=== PATIENT | male | born 1985 | race Caucasian/White ===

== ENCOUNTER 2020-06-11 20:38 | Emergency (ER) | payer MEDICAID, OTHER ==
[2020-06-11 20:53] VITALS: BP 137/86; PULSE 115
[2020-06-11] MEDS ORDERED: Diphtheria,Pertussis(Acell),Tetanus Vaccine 0.5 ML Syringe IM ONE (21:01)
[2020-06-11] MEDS ORDERED: Bupivacaine 0.5% 10 ML SDV INJECT ONE (21:01)
[2020-06-11] MEDS ORDERED: Lidocaine 1% with EPINEPHrine 1:100,000 20 ML MDV INJECT ONE (21:01)
--- NOTE | 2020-06-11 21:08 | EDM.PDOC ---
ED HPI GENERAL MEDICAL PROBLEM - General Chief Complaint: Laceration Stated Complaint: rt hand laceration punched wood door Time Seen by Provider: 06/11/20 20:48 Source of Information: Reports: Patient History Limitations: Reports: No Limitations - History of Present Illness INITIAL COMMENTS - FREE TEXT/NARRATIVE: Mr. Faulkner is a very pleasant 35-year-old gentleman who now presents to the ED after suffering a laceration to his right palm. He states that he had a few drinks tonight, then got into an argument with his father over the phone around 20:20. He then punched a wood door several times, suffering a laceration to his right palm. No home treatment, and he is otherwise uninjured. Here in the ED, the patient is initially found to be mildly tachycardic at 115 bpm, otherwise, he is hemodynamically stable, afebrile, saturating 95% on room air. Other than madiha's right hand injury, the patient reports having a left ear infection, treated with amoxicillin, about 2 weeks ago. Otherwise, the patient denies having a recent fever, chills, sore throat, ear pain, nasal or sinus congestion, cough, dyspnea, chest pain, palpitations, nausea, vomiting, constipation, diarrhea, abdominal pain, urinary symptoms, recent weight gain or weight loss, recent bloody bowel movements or black bowel movements, recent joint aches, headaches, or rashes. The patient's PCP is Dr. Tamica Joseph. The patient is not sure when his last tetanus vaccination was, and he agreed to receive one here tonight, however, he stated that he never gets an influenza vaccine, and declined an offer to receive one here tonight. - Related Data Allergies Allergy/AdvReac Type Severity Reaction Status Date / Time No Known Allergies Allergy Verified 06/11/16 09:24 Home Meds: Home Meds Ascorbic Acid/Multivit-Min [Emergen-C Blue 1,000 mg Packet] 1,000 mg PO DAILY 06/11/16 [History] Diclofenac Sodium [Voltaren] 50 mg PO TIDMEALS #30 tab.ec 06/11/16 [Rx] Prednisone [IMW: predniSONE] 20 mg PO ASDIRECTED #18 tab 06/11/16 [Rx] oxyCODONE HCl/Acetaminophen [Percocet 5-325 mg Tablet] 1 - 2 each PO Q4H PRN #28 tablet 06/11/16 [Rx] Past Medical History Endocrine/Metabolic History: Reports: Obesity/BMI 30+ - Past Surgical History GI Surgical History: Reports: Small Bowel (partial resection, 2013) Social & Family History - Tobacco Use Tobacco Use Status *Q: Former Tobacco User Tobacco Use Within Last Twelve Months: Smokeless Tobacco (Ches 1/2 can per day) Years of Tobacco use: 15 Packs/Tins Daily: 0.7 - Caffeine Use Caffeine Use: Reports: None - Alcohol Use Alcohol Use History: Yes Alcohol Use Frequency: Socially (occasionally to excess) - Recreational Drug Use Recreational Drug Use: No - Living Situation & Occupation Living situation: Reports: , with Spouse, with Family (3 sons) 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 ED EXAM, SKIN/RASH Exam: See Below Exam Limited By: No Limitations General Appearance: Alert, WD/WN, No Apparent Distress, Other (Mildly intoxicated) Extremities: Other (There is an approximately 2.7 cm linear laceration to the volar aspect of the right hand, primarily over the 4th MCP joint, but extending towards the 5th MCP joint. Good flexor strength to the right 4th and 5th fingers, without suggestion of a flexor tendon laceration. The wound is not bleeding at this time. Neurovascular status of the right hand, including the 4th and 5th fingers, is intact.) ED SKIN PROCEDURES - Laceration/Wound Repair Right Hand Appearance: Subcutaneous, Linear, Clean Distal NVT: Neuro & Vascular Intact, No Tendon Injury Anesthetic Type: Local Local Anesthesia - Lidocaine (Xylocaine): 1% with EPI (50:50 admixture) Local Anesthesia - Bupivicaine (Marcaine): 0.5% Plain (50:50 admixture) Local Anesthetic Volume: 1cc Skin Prep: Providone-Iodine (Betadine) Exploration/Debridement/Repair: Wound Explored, In a Bloodless Field, Explored to Base, No Foreign Material Found Closed with: Sutures Lac/Wound length In cm: 2.7 Suture Size: 3-0 # of Sutures: 13 Suture Type: Nylon (Ethilon), Running, Simple Drain Placement: No Sterile Dressing Applied: Nurse Tetanus Status Addressed: Yes Complications: No Course - Vital Signs Last Recorded V/S: Last Vital Signs Temp 36.3 C 06/11/20 20:48 Pulse 115 H 06/11/20 20:48 Resp 18 06/11/20 20:48 BP 137/86 06/11/20 20:48 Pulse Ox 95 06/11/20 20:48 - Orders/Labs/Meds Meds: Medications Discontinued Medications Generic Name Dose Route Start Last Admin Trade Name Shweta PRN Reason Stop Dose Admin Bupivacaine HCl 10 ml 06/11/20 21:01 06/11/20 21:16 Sensorcaine-Mpf 0.5% INJECT 06/11/20 21:02 10 ml ONETIME ONE Administration Diphtheria/Tetanus/Acell Pertussis 0.5 ml 06/11/20 21:01 06/11/20 21:49 Adacel IM 06/11/20 21:02 0.5 ml .ONCE ONE Administration Lidocaine/Epinephrine 20 ml 06/11/20 21:01 06/11/20 21:16 Xylocaine 1% With Epinephrine 1:100,000 INJECT 06/11/20 21:02 20 ml ONETIME ONE Administration - Re-Assessments/Exams Free Text/Narrative Re-Assessment/Exam: 06/11/20 21:02 As above, the patient sustained a laceration to the palmar aspect of his right hand after he punched a wood door about half an hour ago. The laceration is fairly deep, and will require suturing, but it does not appear to involve his 4th flexor tendon. The patient agreed to a tetanus vaccination, however, declined an offer for an influenza vaccine. 06/11/20 21:44 A sterile field was made with Betadine prep. Anesthesia was accomplished with local infiltration of a 50:50 admixture of bupivacaine 0.5% without epinephrine and lidocaine 1% with epinephrine, to good anesthetic effect. The wound was then approximated with 13 simple running sutures using 3-0 Ethilon. The patient tolerated the procedure well. Sterile dressing per Marleni PEDRO. The patient will be given a tetanus vaccination prior to discharge. Sutures should be ready for removal by 06/19/2020. Departure - Departure Time of Disposition: 21:45 Disposition: Home, Self-Care 01 Condition: Good Clinical Impression: Laceration of right hand - Discharge Information *PRESCRIPTION DRUG MONITORING PROGRAM REVIEWED*: Not Applicable *COPY OF PRESCRIPTION DRUG MONITORING REPORT IN PATIENT MARVEL: Not Applicable Instructions: Laceration Care, Adult Referrals: Tamica Joseph MD [Primary Care Provider] - Forms: ED Department Discharge Additional Instructions: You were seen in the emergency room after punching a wooden door, cutting your right palm. Your wound was closed with 13 sutures in the ER. Keep the wound clean with ordinary soap and water when you bathe. Pat dry, then apply a sterile bandage, daily. We do not recommend that you apply antibiotic ointment. Take [id number] Tylenol or ibuprofen as needed for discomfort. If you keep the wound clean, it should not get infected, however, if there are any concerns for an infection, such as swelling, redness, drainage, or inordinate pain, please return to the ER or see Dr. Joseph for reevaluation. The sutures should be ready for removal by 06/19/2020. They can be removed at the walk-in clinic, by a nurse at Dr. Joseph's office, or in the ER. You were given a tetanus vaccination during your ER visit. Sepsis Event Note (ED) - Evaluation Sepsis Screening Result: No Definite Risk - Focused Exam Vital Signs: Vital Signs Temp Pulse Resp BP Pulse Ox 06/11/20 20:48 36.3 C 115 H 18 137/86 95
== END 2020-06-11 22:04 | disposition home or self-care (01) ==
LOC: JD.ED 20:38
DX: S61.411A Laceration without foreign body of right hand, initial encounter (principal); E66.9 Obesity, unspecified; Z87.891 Personal history of nicotine dependence; Z68.33 Body mass index [BMI] 33.0-33.9, adult; Z23 Encounter for immunization; W22.8XXA Striking against or struck by other objects, initial encounter
CPT/HCPCS: 12002; 90471; 90715; 99282; J3490

== ENCOUNTER 2021-05-25 19:12 | Emergency (ER) | payer MEDICAID | END 2021-05-25 19:45 | disposition left against medical advice (07) | LOC: JD.ED 19:12 | DX: S61.219A Laceration without foreign body of unspecified finger without damage to nail, initial encounter (principal); Z53.21 Procedure and treatment not carried out due to patient leaving prior to being seen by health care provider ==

== ENCOUNTER 2021-07-04 22:48 | Emergency (ER) | payer MEDICAID ==
[2021-07-04 23:02] VITALS: BP 103/74; PULSE 83
[2021-07-04] MEDS ORDERED: Ondansetron 4 MG Tab.DIS PO ONE (23:06)
--- NOTE | 2021-07-04 23:14 | EDM.PDOCBH ---
ED HPI GENERAL MEDICAL PROBLEM - General Chief Complaint: Drug or Alcohol Abuse Stated Complaint: [facility] Time Seen by Provider: 07/04/21 23:12 Source of Information: Reports: Patient History Limitations: Reports: Intoxication - History of Present Illness INITIAL COMMENTS - FREE TEXT/NARRATIVE: Patient is a 36-year-old male presenting to the emergency room with alcohol intoxication. Patient states he had too much to drink tonight. Denies any illicit drug use. Reports several episodes of vomiting prior to arrival. Otherwise, patient has no complaints. He states his mouth is dry and would like some water. No reported history of trauma. Brought in by EMS. No interventions performed in route. - Related Data Allergies Allergy/AdvReac Type Severity Reaction Status Date / Time No Known Allergies Allergy Verified 07/04/21 23:02 Home Meds: Home Meds Ascorbic Acid/Multivit-Min [Emergen-C Blue 1,000 mg Packet] 1,000 mg PO DAILY 06/11/16 [History] Diclofenac Sodium [Voltaren] 50 mg PO TIDMEALS #30 tab.ec 06/11/16 [Rx] Prednisone [IMW: predniSONE] 20 mg PO ASDIRECTED #18 tab 06/11/16 [Rx] oxyCODONE HCl/Acetaminophen [Percocet 5-325 mg Tablet] 1 - 2 each PO Q4H PRN #28 tablet 06/11/16 [Rx] Past Medical History Endocrine/Metabolic History: Reports: Obesity/BMI 30+ - Past Surgical History GI Surgical History: Reports: Small Bowel (partial resection, 2013) Social & Family History - Family History Family Medical History: No Pertinent Family History - Caffeine Use Caffeine Use: Reports: None - Living Situation & Occupation Living situation: Reports: , with Spouse, with Family (3 sons) 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 Otherwise, nontoxic Eyes: Pupils Equal and reactive to light bilaterally, no conjunctival injection HENT: No signs of trauma or swelling, Neck supple without meningismus CV: Regular Rate Rhythm, Warm, well-perfused extremities RESP: Unlabored respiratory effort GI: soft, non-tender, non-distended, no masses MSK: No gross deformities appreciated Skin: Warm, dry. No rashes Neuro: Alert, video manager II-XII grossly intact. Sensation and motor function of extremities grossly intact. Psych: Unable to assess COURSE, BEHAVIORAL HEALTH COMP - Course Vital Signs: Last Vital Signs Temp 35.4 C L 07/04/21 22:57 Pulse 83 07/04/21 22:57 Resp 20 07/04/21 22:57 BP 103/74 07/04/21 22:57 Pulse Ox 100 07/04/21 22:57 Orders, Labs, Meds: Active Orders 24 hr Category Date Time Status Blood Glucose Check, Bedside [RC] ONETIME Care 07/04/21 23:06 Active Medications Discontinued Medications Generic Name Dose Route Start Last Admin Trade Name Shweta PRN Reason Stop Dose Admin Ondansetron HCl 4 mg 07/04/21 23:06 07/04/21 23:24 Ondansetron 4 Mg Tab.Dis PO 07/04/21 23:07 4 mg ONETIME ONE Administration Departure - Departure Time of Disposition: 23:32 Disposition: Home, Self-Care 01 Clinical Impression: Alcohol abuse - Discharge Information Forms: ED Department Discharge Sepsis Event Note (ED) - Evaluation Sepsis Screening Result: No Definite Risk - Focused Exam Vital Signs: Vital Signs Temp Pulse Resp BP Pulse Ox 07/04/21 22:57 35.4 C L 83 20 103/74 100 - My Orders Last 24 Hours: My Active Orders 07/04/21 23:06 Blood Glucose Check, Bedside [RC] ONETIME - Assessment/Plan Last 24 Hours: My Active Orders 07/04/21 23:06 Blood Glucose Check, Bedside [RC] ONETIME Assessment:: Patient is 36 and presents with alcohol intoxication. No evidence of traumatic injury or other substance abuse. Vomiting likely secondary to heavy alcohol consumption. Patient is ambulatory and while he is intoxicated he has a is here and will take him home. Return precautions discussed. Discharged in stable condition.
== END 2021-07-04 23:36 | disposition home or self-care (01) ==
LOC: JD.ED 22:48
DX: F10.129 Alcohol abuse with intoxication, unspecified (principal); E66.9 Obesity, unspecified; Z68.39 Body mass index [BMI] 39.0-39.9, adult
CPT/HCPCS: 82947; 99284; A9270